=== PATIENT | male | born 1980 | race Asian ===

== ENCOUNTER 2019-02-20 12:44 | Emergency (ER) | payer OTHER ==
[~2019-02-20] VITALS: Ht 177.8 cm; Wt 100.0 kg
[2019-02-20 12:46] VITALS: BP 165/93
[2019-02-20] MEDS ORDERED: COLCHICINE 0.6 MG TABLET PO ONE (14:00)
[2019-02-20] MEDS ORDERED: IBUPROFEN 600 MG TABLET PO ONE (14:00)
== END 2019-02-20 14:57 | disposition home or self-care (01) ==
LOC: EMS 12:46
DX: M10.9 Gout, unspecified (principal)